=== PATIENT | female | born 1980 | race Two or more races ===

== ENCOUNTER 2022-03-07 00:51 | Emergency (ER) | payer OTHER ==
[~2022-03-07] VITALS: Ht 170.2 cm; Wt 104.3 kg
[2022-03-07] MEDS ORDERED: LORazepam 0.5 MG TAB PO ONE (01:30)
[2022-03-07] MEDS ORDERED: cloNIDine HCL 0.1 MG TAB PO ONE (01:30)
[2022-03-07 02:27] LABS: Alcohol, Urine < 3.0 mg/dL (0-10); Amphetamine Screen, Urine NEGATIVE (NEGATIVE); Barbiturate Scree,Urine NEGATIVE (NEGATIVE); Benzodiazephine Screen, Urine NEGATIVE (NEGATIVE); Cannabinoid Screen, Urine NEGATIVE (NEGATIVE); Cocaine Screen, Urine NEGATIVE (NEGATIVE); Opiate Scree,Urine NEGATIVE (NEGATIVE); Phencyclidine Screen, Urine NEGATIVE (NEGATIVE)
[2022-03-07 05:51] VITALS: BP 142/54
== END 2022-03-07 07:19 | disposition home or self-care (01) ==
LOC: EDBD 00:51 → ER 00:51
DX: R45.851 Suicidal ideations (principal); I16.0 Hypertensive urgency; I10 Essential (primary) hypertension; Z88.2 Allergy status to sulfonamides
CPT/HCPCS: 80307